=== PATIENT | male | born 1960 | race Caucasian/White ===

== ENCOUNTER 2023-03-20 10:45 | Emergency (ER) | payer MEDICAID ==
[~2023-03-20] VITALS: Ht 182.9 cm; Wt 119.1 kg
[2023-03-20 11:33] LABS: BASOPHILS # (AUTO) 0.1 X10'3 (0-0.2); EOSINOPHILS # (AUTO) 0.1 X10'3 (0-0.9); EOSINOPHILS % (AUTO) 0.8 % (0-6); HEMATOCRIT 41.2 % (42.0-52.0); HEMOGLOBIN 13.2 g/dl (14.0-17.9); LYMPHOCYTES # (AUTO) 1.4 X10'3 (1.1-4.8); LYMPHOCYTES % (AUTO) 15.9 % (21-51); MEAN CORPUSCULAR HEMOGLOBIN 27.6 PG (27.0-31.0); MEAN CORPUSCULAR HGB CONC 32.1 g/dL (33.0-36.5); MEAN CORPUSCULAR VOLUME 85.8 FL (78-98); MEAN PLATELET VOLUME 8.3 FL (7.4-10.4); MONOCYTES # (AUTO) 0.6 X10'3 (0-0.9); MONOCYTES % (AUTO) 7.6 % (2-12); NEUTROPHILS # (AUTO) 6.4 X10'3 (1.8-7.7); NEUTROPHILS % (AUTO) 74.7 % (42-75); PLATELET COUNT 245 X10'3 (140-440); RED CELL DISTRIBUTION WIDTH 20.8 % (11.5-14.5); WHITE BLOOD COUNT 8.6 X10'3 (4.5-11.0)
[2023-03-20 11:54] LABS: GLUCOSE 77 MG/DL (70-104); POTASSIUM 4.6 MMOL/L (3.5-5.1); SODIUM 134 MMOL/L (135-145)
[2023-03-20 11:55] LABS: ALANINE AMINOTRANSFERASE 13 U/L (12-78); ALBUMIN 3.5 G/DL (3.4-5.0); ALBUMIN/GLOBULIN RATIO 0.7 (1.1-1.5); ALKALINE PHOSPHATASE 84 IU/L (46-116); ANION GAP 11 (8-16); ASPARTATE AMINO TRANSFERASE 32 U/L (10-37); BILIRUBIN,TOTAL 1.4 MG/DL (0.1-1.0); BLOOD UREA NITROGEN 19 MG/DL (7-18); BUN/CREATININE RATIO 20.9 (10.0-20.0); CALCIUM 9.1 MG/DL (8.5-10.1); CHLORIDE 101 MMOL/L (99-107); CREATININE 0.91 MG/DL (0.60-1.10); TOTAL CARBON DIOXIDE 22.3 MMOL/L (24-32); TOTAL PROTEIN 8.2 G/DL (6.4-8.2); eCRCL 95 ML/MIN; eGFR 85 ML/MIN
[2023-03-20 12:04] LABS: PRO BRAIN NATRIURETIC PEPTIDE 999 PG/ML (0-125)
[2023-03-20 12:12] LABS: ANISOCYTOSIS 3+; PLATELET ESTIMATE NORMAL
[2023-03-20] MEDS ORDERED: morphine 4 MG/ML inj SYRINge IV ONE (12:45)
--- NOTE | 2023-03-20 13:35 | NUR ---
Pt here for cp w/large abdominal hernia. MD Day states cardiac enzymes are negative, pt will be d/c w/pain meds and surgical referral for hernia. Med transport is standing by to take pt back to [place].
[2023-03-20] MEDS ORDERED: TRAM50TA2 PO (13:46)
[2023-03-20 14:42] LABS: INR 3.6 INR; PROTHROMBIN TIME 35.8 SECONDS (9.0-12.0)
[2023-03-20 14:46] VITALS: BP 104/55; PULSE 84; RESP 21; TEMP 98.1; O2SAT 98
== END 2023-03-20 14:48 | disposition home or self-care (01) ==
LOC: ER 10:46
DX: K43.2 Incisional hernia without obstruction or gangrene (principal); R07.89 Other chest pain; E11.9 Type 2 diabetes mellitus without complications; R05.9 Cough, unspecified; F17.210 Nicotine dependence, cigarettes, uncomplicated; I11.0 Hypertensive heart disease with heart failure; I50.9 Heart failure, unspecified; Z98.890 Other specified postprocedural states; Z79.899 Other long term (current) drug therapy
CPT/HCPCS: 36415; 71045; 80053; 80162; 83880; 84484; 85008; 85025; 85610; 93005; 96374; 99285; J2270

== ENCOUNTER 2023-08-22 10:49 | Inpatient (IN) | payer MEDICAID ==
[2023-08-22] VITALS (8 sets, daily range): BP systolic 97–123; BP diastolic 63–83; PULSE 113–130; RESP 18; TEMP 97.9–98; O2SAT 93–100
[~2023-08-22] VITALS: Ht 182.9 cm; Wt 109.8 kg
[2023-08-22 11:32] LABS: BASOPHILS # (AUTO) 0.1 X10'3 (0-0.2); BASOPHILS % (AUTO) 1.4 % (0-1); EOSINOPHILS # (AUTO) 0.1 X10'3 (0-0.9); EOSINOPHILS % (AUTO) 1.4 % (0-6); HEMATOCRIT 35.7 % (42.0-52.0); HEMOGLOBIN 11.5 g/dl (14.0-17.9); LYMPHOCYTES # (AUTO) 1.1 X10'3 (1.1-4.8); LYMPHOCYTES % (AUTO) 12.9 % (21-51); MEAN CORPUSCULAR HEMOGLOBIN 28.7 PG (27.0-31.0); MEAN CORPUSCULAR HGB CONC 32.2 g/dL (33.0-36.5); MEAN PLATELET VOLUME 7.1 FL (7.4-10.4); MONOCYTES # (AUTO) 0.5 X10'3 (0-0.9); MONOCYTES % (AUTO) 6.3 % (2-12); NEUTROPHILS # (AUTO) 6.5 X10'3 (1.8-7.7); PLATELET COUNT 273 X10'3 (140-440); RED BLOOD COUNT 4.01 X10'6 (4.70-6.10); RED CELL DISTRIBUTION WIDTH 18.2 % (11.5-14.5); WHITE BLOOD COUNT 8.3 X10'3 (4.5-11.0)
[2023-08-22] MEDS: normal saline 1000ml 1,000 ML IV ONE (11:46)
[2023-08-22] MEDS: diphenhydrAMINE 50 mg/ml inj IV ONE (11:48)
[2023-08-22 11:49] LABS: D-DIMER 7.84 MG/L FEU (0-0.50)
[2023-08-22] MEDS: morphine 4 MG/ML inj SYRINge IV ONE (11:49)
[2023-08-22 12:05] LABS: ALBUMIN 3.3 G/DL (3.4-5.0); ANION GAP 15 (8-16); BLOOD UREA NITROGEN 28 MG/DL (7-18); BUN/CREATININE RATIO 30.4 (10.0-20.0); CALCIUM 9.5 MG/DL (8.5-10.1); CHLORIDE 106 MMOL/L (99-107); CREATINE KINASE 126 U/L (39-308); CREATININE 0.92 MG/DL (0.60-1.10); GLUCOSE 84 MG/DL (70-104); MAGNESIUM 2.4 MG/DL (1.5-2.4); POTASSIUM 4.3 MMOL/L (3.5-5.1); PRO BRAIN NATRIURETIC PEPTIDE 1966 PG/ML (0-125); SODIUM 141 MMOL/L (135-145); TOTAL CARBON DIOXIDE 20.2 MMOL/L (24-32); eCRCL 94 ML/MIN; eGFR 84 ML/MIN
[2023-08-22] MEDS ORDERED: iohexol 350MG/ML 100ml bottle IV ONE (12:58)
[2023-08-22] MEDS ORDERED: SPIR25TA5 PO (13:14)
[2023-08-22] MEDS ORDERED: FURO-150 PO (13:14)
[2023-08-22] MEDS ORDERED: METF-438 PO (13:14)
[2023-08-22] MEDS ORDERED: LISI20TA28 PO (13:14)
[2023-08-22] MEDS ORDERED: METO-411 PO (13:14)
[2023-08-22] MEDS ORDERED: WARF-55 PO (13:14)
[2023-08-22] MEDS ORDERED: GABA300T28 PO (13:14)
[2023-08-22] MEDS: metoprolol tartrate 1mg/ml inj IV ONE (14:24)
[2023-08-22] MEDS: furosemide 10 MG/1 ML 10ml inj IV ONE (14:25)
[2023-08-22] MEDS ORDERED: DEXTROSE 15 GM of carb/4 tabs (each vial/BOTTLE has 4 tablets) PO PRN ×2 (14:25)
[2023-08-22] MEDS ORDERED: magnesium 2GM in 50ml NS 50 ML IV PRN (14:25)
[2023-08-22] MEDS ORDERED: albuterol 2.5 MG/3 ML nebule NEB PRN (14:25)
[2023-08-22] MEDS ORDERED: mag hydrox/Alum hydrox/simeth 30ml oral suspension PO PRN (14:25)
[2023-08-22] MEDS: PERFLUTREN PROTEIN-A MICROSPHR (Optison) 0.22 MG/ML 3ML VIAL IV ONE (14:25)
[2023-08-22] MEDS ORDERED: glucagon, human recombinant 1mg kit SUBCUT PRN (14:25)
[2023-08-22] MEDS: CefTRIAXone/D5W-Rocephin 1gm 50 ML IV ONE (14:25)
[2023-08-22] MEDS ORDERED: dextrose 50%-water 50ml dispensing syringe IV PRN ×2 (14:25)
[2023-08-22] MEDS ORDERED: potassium Cl 20 mEq SR tablet PO PRN ×2 (14:25)
[2023-08-22] MEDS ORDERED: ondansetron/PF 4mg/2ml inj IV PRN (14:25)
[2023-08-22] MEDS ORDERED: magnesium 4gm in 100ml NS 100 ML IV PRN (14:25)
[2023-08-22] MEDS ORDERED: bisacodyl 10mg suppository rectal RC PRN (14:25)
[2023-08-22] MEDS ORDERED: ipratropium/albuterol 3ml nebule NEB PRN (14:25)
[2023-08-22] MEDS ORDERED: potassium Cl 40MEQ/1/2NS 520ml 520 ML IV PRN (14:25)
[2023-08-22] MEDS: fentaNYL/PF 50MCG/1 ML 2ML syringe IV ONE (14:40)
[2023-08-22] MEDS: digoxin 250mcg/ml 2ml ampule IV ONE (16:44)
[2023-08-22] MEDS ORDERED: metoprolol tartrate 1mg/ml inj IV PRN (16:55)
[2023-08-22] MEDS ORDERED: aminophylline 250mg/10ml inj. IV PRN (16:55)
[2023-08-22] MEDS ORDERED: nitroGLYCERIN 0.4mg SUBLingual tab SL PRN (16:55)
[2023-08-22] MEDS: insulin Lispro (HumaLOG) vial - multi-dose SQ SCH (17:00)
[2023-08-22 17:16] LABS: HEMOGLOBIN A1C 6.3 % (4.5-6.2)
[2023-08-22] MEDS ORDERED: GABA300C PO (17:29)
[2023-08-22 19:12] LABS: INR 1.4 INR; PROTHROMBIN TIME 14.2 SECONDS (9.0-12.0)
[2023-08-22] MEDS: furosemide 10 MG/1 ML 10ml inj IV SCH (19:56)
[2023-08-22] MEDS: K and/or MAG REPLACEMENT MC SCH (20:00)
[2023-08-22] MEDS: gabapentin 300mg capsule PO SCH (20:48)
[2023-08-22] MEDS: acetaminophen 325mg tablet PO PRN (20:48)
[2023-08-22] MEDS: morphine 2 MG/ML inj. syringe IV ONE (20:48)
[2023-08-22] MEDS: docusate sod 100mg capsule PO SCH (20:48)
[2023-08-22] MEDS ORDERED: GABAPENTIN 300 MG PO SCH (21:00)
[2023-08-22] MEDS: amiodarone 150mg/dext, iso-os 100 ML IV ONE (23:12)
[2023-08-22] MEDS: amiodarone/D5 360MG/200ML BAG 200 ML IV SCH (23:20)
[2023-08-23] VITALS (23 sets, daily range): BP systolic 91–127; BP diastolic 61–86; PULSE 70–125; RESP 14–25; TEMP 78.1–98.1; O2SAT 91–99
[2023-08-23] MEDS: LORazepam 1 MG tablet PO PRN (00:48)
[2023-08-23 07:39] LABS: BASOPHILS # (AUTO) 0.1 X10'3 (0-0.2); BASOPHILS % (AUTO) 1.3 % (0-1); EOSINOPHILS # (AUTO) 0.2 X10'3 (0-0.9); EOSINOPHILS % (AUTO) 2.7 % (0-6); HEMATOCRIT 33.1 % (42.0-52.0); HEMOGLOBIN 10.7 g/dl (14.0-17.9); LYMPHOCYTES # (AUTO) 1.1 X10'3 (1.1-4.8); LYMPHOCYTES % (AUTO) 14.4 % (21-51); MEAN CORPUSCULAR HEMOGLOBIN 28.6 PG (27.0-31.0); MEAN CORPUSCULAR HGB CONC 32.3 g/dL (33.0-36.5); MEAN CORPUSCULAR VOLUME 88.6 FL (78-98); MEAN PLATELET VOLUME 7.2 FL (7.4-10.4); MONOCYTES # (AUTO) 0.6 X10'3 (0-0.9); MONOCYTES % (AUTO) 8.4 % (2-12); NEUTROPHILS # (AUTO) 5.4 X10'3 (1.8-7.7); NEUTROPHILS % (AUTO) 73.2 % (42-75); PLATELET COUNT 218 X10'3 (140-440); RED BLOOD COUNT 3.74 X10'6 (4.70-6.10); RED CELL DISTRIBUTION WIDTH 17.8 % (11.5-14.5); WHITE BLOOD COUNT 7.4 X10'3 (4.5-11.0)
[2023-08-23 07:47] LABS: INR 1.5 INR; PROTHROMBIN TIME 15.1 SECONDS (9.0-12.0)
[2023-08-23 08:11] LABS: ALANINE AMINOTRANSFERASE 12 U/L (12-78); ALBUMIN 2.9 G/DL (3.4-5.0); ALBUMIN/GLOBULIN RATIO 0.6 (1.1-1.5); ALKALINE PHOSPHATASE 67 IU/L (46-116); ANION GAP 10 (8-16); ASPARTATE AMINO TRANSFERASE 26 U/L (10-37); BILIRUBIN,TOTAL 0.8 MG/DL (0.1-1.0); BLOOD UREA NITROGEN 27 MG/DL (7-18); BUN/CREATININE RATIO 26.7 (10.0-20.0); CALCIUM 8.9 MG/DL (8.5-10.1); CHLORIDE 107 MMOL/L (99-107); CREATININE 1.01 MG/DL (0.60-1.10); GLUCOSE 90 MG/DL (70-104); POTASSIUM 4.2 MMOL/L (3.5-5.1); SODIUM 139 MMOL/L (135-145); TOTAL PROTEIN 7.8 G/DL (6.4-8.2); eCRCL 85 ML/MIN; eGFR 75 ML/MIN
[2023-08-23] MEDS: spironolactone 25 MG tablet PO SCH (09:32)
[2023-08-23 09:33] LABS: BFSOURCE LEFT PLEURAL FLD
[2023-08-23] MEDS: lisinopril 5mg tablet PO SCH (09:33)
[2023-08-23] MEDS: metoprolol succinate 25mg (24-HOUR) SR. Tablet PO SCH (09:33)
[2023-08-23 09:56] LABS: GLUCOSE,BODY FLUID 97 MG/DL; LDH,BODY FLUID 87 U/L; TOTAL PROTEIN,BODY FLUID 3.2 G/DL
[2023-08-23 10:42] LABS: BF MESOTHELIAL CELLS MANY; BF RBC COUNT 1120 /CU MM; BF WBC COUNT 735 /CU MM (0-1000); BFAPPEAR HAZY; BFCOLOR YELLOW; BFSOURCE LEFT PLEURAL FLD; BFVOLUME 34 ML; LYMPHOCYTES,BODY FLUID 38 %; MONOCYTES,BODY FLUID 23 %; NEUTROPHILS,BODY FLUID 39 %
[2023-08-23] MEDS: morphine 2 MG/ML inj. syringe IV ONE (11:00)
[2023-08-23] MEDS: regadenoson 0.4mg/5ml syringe IV PRN (11:02)
[2023-08-23] MEDS: hydrOXYzine 25 MG tablet PO ONE (14:49)
[2023-08-23] MEDS: CefTRIAXone/D5W-Rocephin 1gm 50 ML IV SCH (14:51)
[2023-08-23] MEDS: morphine 2 MG/ML inj. syringe IV PRN (14:51)
[2023-08-23] MEDS: diltiazem-NS 100mg/100ml 100 ML IV SCH (17:00)
[2023-08-23] MEDS: diltiazem 5mg/ml 5ml inj. IV ONE (17:00)
[2023-08-24] VITALS (11 sets, daily range): BP systolic 92–110; BP diastolic 50–73; PULSE 66–138; RESP 15–26; TEMP 97.7–99.4; O2SAT 66–99
[2023-08-24 07:18] LABS: BASOPHILS # (AUTO) 0.1 X10'3 (0-0.2); BASOPHILS % (AUTO) 1.3 % (0-1); EOSINOPHILS # (AUTO) 0.2 X10'3 (0-0.9); EOSINOPHILS % (AUTO) 1.8 % (0-6); HEMATOCRIT 31.7 % (42.0-52.0); HEMOGLOBIN 10.4 g/dl (14.0-17.9); LYMPHOCYTES # (AUTO) 1.2 X10'3 (1.1-4.8); LYMPHOCYTES % (AUTO) 13.9 % (21-51); MEAN CORPUSCULAR HEMOGLOBIN 28.6 PG (27.0-31.0); MEAN CORPUSCULAR HGB CONC 32.8 g/dL (33.0-36.5); MEAN CORPUSCULAR VOLUME 87.3 FL (78-98); MEAN PLATELET VOLUME 7.4 FL (7.4-10.4); MONOCYTES # (AUTO) 0.7 X10'3 (0-0.9); MONOCYTES % (AUTO) 8.4 % (2-12); NEUTROPHILS # (AUTO) 6.4 X10'3 (1.8-7.7); NEUTROPHILS % (AUTO) 74.6 % (42-75); PLATELET COUNT 226 X10'3 (140-440); RED BLOOD COUNT 3.63 X10'6 (4.70-6.10); WHITE BLOOD COUNT 8.6 X10'3 (4.5-11.0)
[2023-08-24 07:21] LABS: INR 1.6 INR
[2023-08-24 07:30] LABS: PROTHROMBIN TIME 16.1 SECONDS (9.0-12.0)
[2023-08-24] MEDS: spironolactone 25 MG tablet PO SCH (07:32)
[2023-08-24 07:43] LABS: ALANINE AMINOTRANSFERASE 7 U/L (12-78); ALBUMIN 2.7 G/DL (3.4-5.0); ALBUMIN/GLOBULIN RATIO 0.6 (1.1-1.5); ALKALINE PHOSPHATASE 59 IU/L (46-116); ANION GAP 9 (8-16); ASPARTATE AMINO TRANSFERASE 22 U/L (10-37); BILIRUBIN,TOTAL 0.9 MG/DL (0.1-1.0); BLOOD UREA NITROGEN 28 MG/DL (7-18); BUN/CREATININE RATIO 24.3 (10.0-20.0); CALCIUM 8.7 MG/DL (8.5-10.1); CHLORIDE 106 MMOL/L (99-107); CREATININE 1.15 MG/DL (0.60-1.10); GLUCOSE 80 MG/DL (70-104); MAGNESIUM 2.1 MG/DL (1.5-2.4); POTASSIUM 4.8 MMOL/L (3.5-5.1); SODIUM 138 MMOL/L (135-145); TOTAL CARBON DIOXIDE 23.2 MMOL/L (24-32); TOTAL PROTEIN 7.3 G/DL (6.4-8.2); eCRCL 75 ML/MIN; eGFR 65 ML/MIN
[2023-08-24] MEDS ORDERED: spironolactone 25 MG tablet PO SCH (08:30)
[2023-08-25] VITALS (9 sets, daily range): BP systolic 98–121; BP diastolic 57–75; PULSE 65–126; RESP 18–24; TEMP 97.6–98.4; O2SAT 90–95
[2023-08-25 07:24] LABS: BASOPHILS # (AUTO) 0.1 X10'3 (0-0.2); BASOPHILS % (AUTO) 1.3 % (0-1); EOSINOPHILS # (AUTO) 0.2 X10'3 (0-0.9); EOSINOPHILS % (AUTO) 2.1 % (0-6); HEMATOCRIT 32.2 % (42.0-52.0); HEMOGLOBIN 10.5 g/dl (14.0-17.9); LYMPHOCYTES % (AUTO) 11.5 % (21-51); MEAN CORPUSCULAR HEMOGLOBIN 28.6 PG (27.0-31.0); MEAN CORPUSCULAR HGB CONC 32.6 g/dL (33.0-36.5); MEAN CORPUSCULAR VOLUME 87.5 FL (78-98); MEAN PLATELET VOLUME 7.6 FL (7.4-10.4); MONOCYTES # (AUTO) 0.7 X10'3 (0-0.9); MONOCYTES % (AUTO) 8.1 % (2-12); NEUTROPHILS # (AUTO) 6.7 X10'3 (1.8-7.7); PLATELET COUNT 220 X10'3 (140-440); RED BLOOD COUNT 3.68 X10'6 (4.70-6.10); RED CELL DISTRIBUTION WIDTH 17.8 % (11.5-14.5); WHITE BLOOD COUNT 8.7 X10'3 (4.5-11.0)
[2023-08-25 07:35] LABS: ALANINE AMINOTRANSFERASE 9 U/L (12-78); ALBUMIN 2.7 G/DL (3.4-5.0); ALBUMIN/GLOBULIN RATIO 0.6 (1.1-1.5); ALKALINE PHOSPHATASE 57 IU/L (46-116); ANION GAP 8 (8-16); ASPARTATE AMINO TRANSFERASE 27 U/L (10-37); BLOOD UREA NITROGEN 32 MG/DL (7-18); BUN/CREATININE RATIO 31.1 (10.0-20.0); CALCIUM 8.6 MG/DL (8.5-10.1); CHLORIDE 106 MMOL/L (99-107); CREATININE 1.03 MG/DL (0.60-1.10); GLUCOSE 93 MG/DL (70-104); POTASSIUM 4.7 MMOL/L (3.5-5.1); SODIUM 137 MMOL/L (135-145); TOTAL CARBON DIOXIDE 23.5 MMOL/L (24-32); TOTAL PROTEIN 7.1 G/DL (6.4-8.2); eCRCL 84 ML/MIN; eGFR 74 ML/MIN
[2023-08-25 07:53] LABS: INR 1.5 INR; PROTHROMBIN TIME 15.4 SECONDS (9.0-12.0)
[2023-08-25] MEDS ORDERED: warfarin 5mg tablet PO SCH (08:00)
[2023-08-25] MEDS: warfarin 5mg tablet PO ONE (20:23)
[2023-08-26] VITALS (7 sets, daily range): BP systolic 98–115; BP diastolic 62–77; PULSE 86–94; RESP 16–22; TEMP 98.1–98.4; O2SAT 91–96
[2023-08-26 07:01] LABS: ALANINE AMINOTRANSFERASE 11 U/L (12-78); ALBUMIN 2.6 G/DL (3.4-5.0); ALBUMIN/GLOBULIN RATIO 0.6 (1.1-1.5); ALKALINE PHOSPHATASE 59 IU/L (46-116); ANION GAP 12 (8-16); ASPARTATE AMINO TRANSFERASE 32 U/L (10-37); BLOOD UREA NITROGEN 30 MG/DL (7-18); BUN/CREATININE RATIO 33.7 (10.0-20.0); CHLORIDE 108 MMOL/L (99-107); CREATININE 0.89 MG/DL (0.60-1.10); GLUCOSE 105 MG/DL (70-104); INR 1.5 INR; POTASSIUM 4.5 MMOL/L (3.5-5.1); PROTHROMBIN TIME 15.8 SECONDS (9.0-12.0); SODIUM 139 MMOL/L (135-145); TOTAL CARBON DIOXIDE 19.5 MMOL/L (24-32); TOTAL PROTEIN 7.2 G/DL (6.4-8.2); eCRCL 97 ML/MIN; eGFR 87 ML/MIN
[2023-08-26 07:20] LABS: BASOPHILS # (AUTO) 0.1 X10'3 (0-0.2); BASOPHILS % (AUTO) 1.4 % (0-1); EOSINOPHILS # (AUTO) 0.3 X10'3 (0-0.9); EOSINOPHILS % (AUTO) 3.4 % (0-6); HEMATOCRIT 32.9 % (42.0-52.0); HEMOGLOBIN 10.5 g/dl (14.0-17.9); LYMPHOCYTES % (AUTO) 12.3 % (21-51); MEAN CORPUSCULAR VOLUME 90.7 FL (78-98); MEAN PLATELET VOLUME 7.9 FL (7.4-10.4); MONOCYTES # (AUTO) 0.8 X10'3 (0-0.9); MONOCYTES % (AUTO) 9.2 % (2-12); NEUTROPHILS # (AUTO) 6.1 X10'3 (1.8-7.7); NEUTROPHILS % (AUTO) 73.7 % (42-75); PLATELET COUNT 232 X10'3 (140-440); RED BLOOD COUNT 3.63 X10'6 (4.70-6.10); RED CELL DISTRIBUTION WIDTH 18.4 % (11.5-14.5); WHITE BLOOD COUNT 8.3 X10'3 (4.5-11.0)
[2023-08-26] MEDS ORDERED: warfarin 5mg tablet PO ONE (21:00)
== END 2023-08-26 19:14 | DRG 194 ==
LOC: ER 10:49 → ED HOLD 14:37 → PCU 3S 16:35
PROVIDERS: ADMIT Family Medicine; ATTEND Family Medicine
PROC: 4A02XM4 Measurement of Cardiac Total Activity, External Approach (ICD-10-PCS; 2023-08-22)
PROC: 3E033HZ Introduction of Radioactive Substance into Peripheral Vein, Percutaneous Approach (ICD-10-PCS; 2023-08-22)
PROC: B32T1ZZ Computerized Tomography (CT Scan) of Left Pulmonary Artery using Low Osmolar Contrast (ICD-10-PCS; 2023-08-22)
PROC: B3201ZZ Computerized Tomography (CT Scan) of Thoracic Aorta using Low Osmolar Contrast (ICD-10-PCS; 2023-08-22)
PROC: B32S1ZZ Computerized Tomography (CT Scan) of Right Pulmonary Artery using Low Osmolar Contrast (ICD-10-PCS; 2023-08-22)
PROC: 0W9B3ZZ Drainage of Left Pleural Cavity, Percutaneous Approach (ICD-10-PCS; principal; 2023-08-23)
DX: I50.23 Acute on chronic systolic (congestive) heart failure (principal); J91.8 Pleural effusion in other conditions classified elsewhere; E11.9 Type 2 diabetes mellitus without complications; I08.1 Rheumatic disorders of both mitral and tricuspid valves; R07.89 Other chest pain; K46.9 Unspecified abdominal hernia without obstruction or gangrene; F17.210 Nicotine dependence, cigarettes, uncomplicated; I48.91 Unspecified atrial fibrillation; Z93.3 Colostomy status; I95.2 Hypotension due to drugs; T44.7X5A Adverse effect of beta-adrenoreceptor antagonists, initial encounter; Y92.238 Other place in hospital as the place of occurrence of the external cause; Z83.3 Family history of diabetes mellitus; Z82.49 Family history of ischemic heart disease and other diseases of the circulatory system; Z79.01 Long term (current) use of anticoagulants; I25.2 Old myocardial infarction; Z79.899 Other long term (current) drug therapy; Z71.6 Tobacco abuse counseling
CPT/HCPCS: 32555; 36415; 71045; 71275; 78452; 80048; 80053; 82550; 82945; 82948; 83036; 83605; 83615; 83735; 83880; 83986; 84145; 84157; 84484; 85025; 85379; 85610; 87040; 87070; 87075; 87081; 87102; 89051; 93005; 93017; 93306; 93925; 94760; 96365; 96375; 97110; 97161; 97530; 99285; A4371; A4615; A6196; A6253; A6446; A6449; A9500; G0378; J0282; J0696; J1160; J1200; J1815; J1940; J2270; J2785; J3010; J3490; J7030; J7040; Q0177; Q9967